=== PATIENT | female | born 1960 | race Caucasian/White ===

== ENCOUNTER 2022-05-17 10:16 | Emergency (ER) | payer OTHER, SELFPAY ==
[2022-05-17] VITALS (11 sets, daily range): BP systolic 146–174; BP diastolic 86–94; PULSE 53–75; RESP 12–31; TEMP 36.4; O2SAT 94–100
--- NOTE | ~2022-05-17 | CT_ITS ---
EXAMINATION: CT brain wo con DATE: 05/17/2022 10:48 INDICATION: 4 days of occipital headache. TECHNIQUE: Computed tomography (CT) of the head was performed without intravenous contrast. Sagittal and coronal reconstructions were performed. The mA was adjusted according to patient size. Iterative reconstruction technique was employed. The dose-length product was 681.00 mGy-cm. COMPARISON: head CT dated FINDINGS: Intraperitoneal hemorrhage in the anterior left frontal lobe measuring 3.6 x 3.3 x 1.8 cm with surrou nding vasogenic edema. There is also overlying subarachnoid hemorrhage involving the sulci and the an terior left frontal lobe and extending caudally along the interhemispheric fissure to the suprasellar cistern. There is some local mass effect with up to 5 mm left to right midline shift of a small port ion of the anterior falx. No acute infarction. There is mild to moderate scattered white matter hypoa ttenuation consistent with chronic small vessel ischemic disease. Ventricles are normal and symmetri c. No masses identified. Mild mucosal thickening in the ethmoid sinuses. The orbits and mastoid air c ells are normal. IMPRESSION: 1. 3.6 x 3.3 x 1.8 cm and parenchymal hematoma in the anterior left frontal lobe with associated vaso genic edema and moderate amount of overlying subarachnoid hemorrhage. Dr. Fraire discussed these fi ndings with Dr. Landon at 10:50 AM. 2. Mild to moderate scattered white matter hypoattenuation consistent with chronic small vessel ische erma disease. Reviewed, dictated and finalized at location A. IMPRESSION: 1. 3.6 x 3.3 x 1.8 cm and parenchymal hematoma in the anterior left frontal lob e with associated vasogenic edema and moderate amount of overlying subarachnoid hemorrhage. Dr. Fraire discussed these findings with Dr. Landon at 10:50 AM. 2. 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
--- NOTE | 2022-05-17 11:02 | ED.HA ---
HPI - Headache General Chief Complaint: Headache Stated Complaint: Headache, since Monday, neg Covid test Monday Time Seen by Provider: 05/17/22 10:35 Source: patient Mode of arrival: ambulatory Limitations: no limitations History of Present Illness HPI Narrative: This is a 61-year-old female that presents to the emergency department for headaches noted over the last couple of days. Reports pulsatile headaches associated with vomiting. Reports she does not usually get headaches or migraines. She is not on any anticoagulation. No recent injuries or trauma. Denies fevers. Related Data Allergies Allergy/AdvReac Type Severity Reaction Status Date / Time No Known Allergies Allergy Verified 05/17/22 10:31 Review of Systems Review of Systems: CONSTITUTIONAL: Denies fever EYES: Denies visual changes GASTROINTESTINAL: Reports vomiting NEUROLOGIC: Reports headache. Denies numbness, or weakness. All systems reviewed & are unremarkable except as noted in HPI and below PMFSH Past Medical History Medical History (Updated 05/17/22 @ 11:17 by Roxana Landon PA-C) History of hypertension Social History Social History (Updated 05/17/22 @ 11:12 by Roxana Landon PA-C) Smoking status: Never smoker Exam Narrative: GENERAL: Well-appearing, well-nourished, and in no acute distress. HEAD: Normocephalic, atraumatic. EYES: PERRLA and EOMI. ENT: Nares clear, no rhinorrhea or epistaxis. Mucous membranes moist. Oropharynx without tonsillar hypertrophy exudate or other lesions. Bilateral TMs pearly leon non-bulging NECK: Supple. No adenopathy or masses. CHEST: Clear to auscultation. No respiratory distress. No wheezes rales or rhonchi HEART: Regular rate and rhythm. No murmur heard. Normal peripheral pulses. ABDOMEN: Soft, nontender, nondistended, normal active bowel sounds. EXTREMITIES: Normal range of motion. No edema. Strength equal in bilateral upper and lower extremities (5/5) SKIN: Warm, dry, no rash. NEURO: No focal deficits. Alert and oriented x3. Cranial nerves II through XII grossly intact. Normal [id number] PSYCH: Normal mood and affect Course Consultations Consultation #1: Spoke with Dr. Strickland, neurosurgery at [facility]. Patient will be transferred to the ER for further evaluation and management. Date: 05/17/22 Time: 11:17 Consultation #2: Spoke with Dr. Tijerina about patient and workup who accepts transfer to the ER at [facility] Date: 05/17/22 Time: 11:20 Vital Signs Vital signs: Vital Signs Temperature 97.5 F L 05/17/22 10:25 Pulse Rate 75 05/17/22 10:25 Respiratory Rate 16 05/17/22 10:25 Blood Pressure 148/89 H 05/17/22 10:25 Pulse Oximetry 99 05/17/22 10:25 Oxygen Delivery Room Air 05/17/22 10:25 Temperature 97.5 F L 05/17/22 10:25 Pulse Rate 75 05/17/22 10:25 Respiratory Rate 31 H 05/17/22 11:16 Blood Pressure 146/86 H 05/17/22 11:16 Pulse Oximetry 97 05/17/22 11:16 Oxygen Delivery Room Air 05/17/22 10:25 MDM - Headache MDM Narrative Medical decision making narrative: Patient presents to the ER for new headache ongoing over the last couple of days. Patient is afebrile and nontoxic appearing. She is neurologically intact. No recent injuries or trauma. CT scan of the brain shows CT scan of the brain shows 3.6 x 3.3 x 1.8 cm intraparenchymal hematoma in the anterior left frontal lobe with associated vasogenic edema and moderate amount of overlying subarachnoid hemorrhage. Spoke with Dr. Strickland, neurosurgery at [facility]. Patient will be transferred to the ER for further evaluation and management. Spoke with Dr. Tijerina about patient and workup who accepts transfer to the ER at [facility] Lab Data Attestation: I reviewed the patient's lab results. Result diagrams: 05/17/22 11:00 05/17/22 11:00 Labs: Lab Results 05/17/22 05/17/22 05/17/22 Range/Units 11:00 11:00 11:00 WBC Pending RBC Pending Hgb Pending Hct Pending MCV Pending
[2022-05-17 11:06] LABS: Basophils Percent Auto 0.2 % (0.2-1.2); Eosinophils Percent Auto 0.2 % (0-4.4); Hematocrit 43.4 % (37.0-47.0); Hemoglobin 14.9 g/dL (12.0-15.0); Immature Granulocyte Absolute 0.03 K/mm3 (0.00-0.031); Immature Granulocyte Percent A 0.3 % (0-0.5); Lymphocytes Absolute Auto 1.45 K/mm3 (0.9-3.2); Lymphocytes Percent Auto 15.5 % (18.3-44.2); Mean Corpuscular HGB Conc 34.3 g/dl (32-36); Mean Corpuscular Hemoglobin 31.4 pg (26-34); Mean Corpuscular Volume 91.4 fl (80-100); Mean Platelet Volume 9.5 fl (7.4-10.4); Monocytes Absolute Auto 0.5 K/mm3 (0.1-0.6); Monocytes Percent Auto 5.1 % (2.6-8.5); Neutrophils Absolute Auto 7.3 K/mm3 (1.3-6.7); Neutrophils Percent Auto 78.7 % (45.5-73.1); Platelet Count Result 276 k/mm3 (150-375); Red Blood Count 4.75 M/mm3 (4.2-5.4); Red Cell Distribution Width 12.3 % (11.5-14.5); White Blood Count 9.3 K/mm3 (4.5-10.0)
[2022-05-17 11:16] LABS: Alanine Aminotransferase 25 U/L (6-35); Albumin Level 4.9 g/dL (3.5-5.1); Alkaline Phosphatase 88 U/L (38-126); Anion Gap 14 mmol/L (8-16); Aspartate Amino Transferase 33 U/L (14-36); Bilirubin,Total 0.6 mg/dL (0.2-1.3); Blood Urea Nitrogen 12 mg/dL (7-17); Calcium 9.8 mg/dL (8.4-10.2); Carbon Dioxide 25 mmol/L (22-30); Chloride 101 mmol/L (98-107); Estimated CRCL calculation 58 ml/min; Estimated Glomerular Filt Rate > 60; Glucose 117 mg/dL (65-110); Sodium 140 mmol/L (137-145)
[2022-05-17 11:24] LABS: Prothrombin Time 12.3 Seconds (11.1-14.7)
[2022-05-17 11:25] LABS: Partial Thromboplastin Time 27.7 SECONDS (22.3-36.8)
== END 2022-05-17 12:38 | disposition short-term general hospital (02) ==
PROVIDERS: Physician Assistant; Emergency Provider Emergency Medicine; PCP Family Medicine
DX: I61.8 Other nontraumatic intracerebral hemorrhage (principal); I10 Essential (primary) hypertension
CPT/HCPCS: 36415; 70450; 80053; 85025; 85610; 85730; 96374; 99285; J0131